=== PATIENT | male | born 1995 | race Caucasian/White ===

== ENCOUNTER 2017-05-25 11:09 | Emergency (ER) | payer BC ==
[2017-05-25 13:40] VITALS: BP 118/66
--- NOTE | 2017-05-25 14:52 | UC ---
Throat Pain/Nasal Derick HPI - HPI Summary HPI Summary: FIVE DAYS OF WORSENING SINUS/FACIAL PRESSURE, COUGH, CONGESTION. NO FEVER. - History of Current Complaint Chief Complaint: UCRespiratory Stated Complaint: SINUS COMPLAINT Time Seen by Provider: 05/25/17 14:18 Hx Obtained From: Patient Onset/Duration: Gradual Onset, Lasting Days, Still Present Severity: Moderate Associated Signs & Symptoms: Positive: Sinus Discomfort, Nasal Discharge. Negative: Dysphagia, Fever - Epiglottits Risk Factors Epiglottis Risk Factors: Negative - Allergies/Home Medications Allergies/Adverse Reactions: Allergies Allergy/AdvReac Type Severity Reaction Status Date / Time No Known Allergies Allergy Verified 05/25/17 13:40 PMH/Surg Hx/FS Hx/Imm Hx Previously Healthy: Yes Other History Of: Negative For: HIV, Hepatitis B, Hepatitis C - Surgical History Surgical History: Yes Surgery Procedure, Year, and Place: RIGHT HAND SURGERY,RIGHT HIP SURGERY - Family History Known Family History: Positive: None - Social History Occupation: Employed Full-time Lives: With Family Alcohol Use: Weekly Substance Use Type: None Smoking Status (MU): Never Smoked Tobacco - Immunization History Vaccination Up to Date: Yes Review of Systems Constitutional: Negative Skin: Negative Eyes: Negative ENT: Ear Ache, Nasal Discharge, Sinus Congestion, Sinus Pain/Tenderness Respiratory: Cough Cardiovascular: Negative Gastrointestinal: Negative Genitourinary: Negative Motor: Negative Neurovascular: Negative Musculoskeletal: Negative Neurological: Negative Psychological: Negative Is Patient Immunocompromised?: No All Other Systems Reviewed And Are Negative: Yes Physical Exam Triage Information Reviewed: Yes Appearance: No Pain Distress, Well-Nourished, Ill-Appearing - MILDLY Vital Signs: Initial Vital Signs Temp 97.8 F 05/25/17 13:37 Pulse 50 05/25/17 13:37 Resp 14 05/25/17 13:37 BP 118/66 05/25/17 13:37 Pulse Ox 100 05/25/17 13:37 Vital Signs Reviewed: Yes Eye Exam: Normal ENT: Positive: Hearing grossly normal, Nasal congestion, TM bulging, TM dull Dental Exam: Normal Neck exam: Normal Neck: Positive: Supple, Nontender, No Lymphadenopathy Respiratory Exam: Other - COUGH Respiratory: Positive: Chest non-tender, Lungs clear, Normal breath sounds, No respiratory distress, No accessory muscle use Cardiovascular Exam: Normal Cardiovascular: Positive: RRR, No Murmur, Pulses Normal Abdominal Exam: Normal Musculoskeletal Exam: Normal Musculoskeletal: Positive: Strength Intact, ROM Intact Neurological Exam: Normal Psychological Exam: Normal Skin Exam: Normal Throat Pain/Nasal Course/Dx - Differential Dx/Diagnosis Differential Diagnosis/HQI/PQRI: Otitis Media, Sinusitis, Tonsillitis, URI Provider Diagnoses: SINUSITIS Discharge - Discharge Plan Condition: Stable Disposition: HOME Prescriptions: Amoxicillin/Clavulanate TAB* [Augmentin TAB 875*] 875 mg PO BID #20 tab Patient Education Materials: Sinusitis (ED) Forms: *Work Release Referrals: Kunal Salvador MD [Primary Care Provider] -
== END 2017-05-25 14:53 | disposition home or self-care (01) ==
LOC: UCCORT 11:09
DX: J32.9 Chronic sinusitis, unspecified (principal)
CPT/HCPCS: 99212; G0463

== ENCOUNTER 2017-05-27 08:41 | Emergency (ER) | payer BC, OTHER ==
[2017-05-27] MEDS ORDERED: Tetanus Immune Globulin Human* 250 UNITS/ML IM ONE (09:21)
--- NOTE | 2017-05-27 09:32 | ED ---
- HPI Summary HPI Summary: Pt here w/ possible body fluid exposure - works as a territory sales manager medical and as he was taking out biohazardous trash from the OR (instruments were from multiple cases and had been used > 12 hours ago), he scraped his gloved Lt ring finger against an instrument and when he took off his glove, noticed it was ripped and he had a superficial abrasion. Washed hands with hibaclens immediately and used hand receivable clerk 2 x after that. Area is not painful not actively bleeding - had scant bleeding at onset. Denies puncture sensation. Last tetanus was 6 years ago and he has received Hep B series prior to attending college (6 years ago). He is here to follow protocol of exposure as directed. NOTE: on anbx (augmentin) x 2 days for sinus infection - History of Current Complaint Chief Complaint: EDExposureBodyFluid Stated Complaint: EXPOSURE Time Seen by Provider: 05/27/17 09:04 PMH/Surg Hx/FS Hx/Imm Hx Previously Healthy: Yes Endocrine/Hematology History: Denies: Hx Anticoagulant Therapy, Hx Blood Disorders, Hx Diabetes, Hx Thyroid Disease, Autoimmune Disease Cardiovascular History: Denies: Hx Congestive Heart Failure, Hx Deep Vein Thrombosis, Hx Hypercholesterolemia, Hx Hypertension, Hx Myocardial Infarction, Hx Pacemaker/ ICD, Hx Peripheral Vascular Disease Respiratory History: Denies: Hx Asthma, Hx Chronic Obstructive Pulmonary Disease (COPD), Hx Lung Cancer, Hx Pneumonia, Hx Pulmonary Embolism GI History: Denies: Hx Gall Bladder Disease, Hx Gastrointestinal Bleed, Hx Ulcer, Hx Urosepsis History: Denies: Hx Kidney Stones, Hx Renal Disease Musculoskeletal History: Denies: Hx Arthritis, Hx Osteoporosis Sensory History: Denies: Hx Cataracts, Hx Contacts or Glasses, Hx Glaucoma, Hx Hearing Aid Opthamlomology History: Denies: Hx Cataracts, Hx Contacts or Glasses, Hx Glaucoma Neurological History: Denies: Hx Dementia, Hx Headaches, Hx Migraine, Hx Seizures, Hx Transient Ischemic Attacks (TIA) Psychiatric History: Denies: Hx Anxiety, Hx Depression, Hx Panic Disorder - Surgical History Surgery Procedure, Year, and Place: RIGHT HAND SURGERY,RIGHT HIP SURGERY Infectious Disease History: No Infectious Disease History: Denies: Hx Hepatitis, Hx Human Immunodeficiency Virus (HIV), Traveled Outside the [place] in Last 30 Days - Family History Known Family History: Positive: Hypertension - father - Social History Occupation: Employed Full-time - medical housekeeping Lives: With Family Alcohol Use: Weekly Alcohol Amount: mostly weekends Hx Substance Use: No Substance Use Type: Reports: None Hx Tobacco Use: No Smoking Status (MU): Never Smoked Tobacco Review of Systems Constitutional: Negative Positive: no symptoms reported Musculoskeletal: Negative Skin: Other - see HPI Neurological: Negative Psychological: Normal All Other Systems Reviewed And Are Negative: Yes Physical Exam Triage Information Reviewed: Yes Vital Signs On Initial Exam: Initial Vitals Temp Pulse Resp BP Pulse Ox 98 F 57 17 127/65 95 05/27/17 08:43 05/27/17 08:43 05/27/17 08:43 05/27/17 08:43 05/27/17 08:43 Vital Signs Reviewed: Yes Appearance: Positive: Well-Appearing, No Pain Distress, Well-Nourished Skin: Positive: Warm, Dry - scan dried blood over superficial abrasion (through top layer of epidermis) - cleaned and could not stimulate more bleeding - clean w/o erythema, edema or ecchymosis Head/Face: Positive: Normal Head/Face Inspection Eyes: Positive: EOMI ENT: Positive: Hearing grossly normal Respiratory/Lung Sounds: Positive: Breath Sounds Present Cardiovascular: Positive: Pulses are Symmetrical in both Upper and Lower Extremities Musculoskeletal: Positive: Normal, Strength/ROM Intact Neurological: Positive: Normal, Sensory/Motor Intact, Alert, Oriented to Person Place, Time, CN Intact II-III Psychiatric: Positive: Normal - [place] Coma Scale Coma Scale Total: 15 Procedures - Procedure Summary Procedure Summary: Cleaned wound with alcohol wipe, applied triple anbx ointment and bandaid - pt tolerated well Diagnostics - Vital Signs Vital Signs Temp Pulse Resp BP Pulse Ox 05/27/17 09:00 69 95 05/27/17 08:52 97.9 F 73 16 132/106 95 05/27/17 08:43 98 F 57 17 127/65 95 - Laboratory Lab Statement: Any lab studies that have been ordered have been reviewed, and results considered in the medical decision making process. Needlestick Course/Dx - Course Course Of Treatment: Pt presents w/ superficial abrasion to Lt ring finger after cleaning 12 hour old, dry biohazardous material w/ gloves in place. Based on HPI, pt is very low risk for acquiring HIV, Hepatitis. Discussed risks/ benefits of PEP in this siutation - pt declined. He agrees to baseline testing and repeat testing - will f/u w/ Dr. Good as directed. Also discussed wound care - pt agrees w/ plan. Paperwork complete. - Diagnoses Provider Diagnoses: Exposure to potentially hazardous body fluids, Abrasion of left ring finger Discharge - Discharge Plan Condition: Stable Disposition: HOME Patient Education Materials: Abrasion (ED), Body Substance Exposure (ED) Referrals: Latisha HUTSON,Marcos Marquez [Medical Doctor] - Additional Instructions: Wash wound daily with soap and water - rinse well and pat dry then apply triple antibiotic ointment + bandaid. Keep covered during the day - may keep open to air at night to allow for scabbing as needed. Follow-up with Dr. Good - call today to schedule appointments. *If you develop redness, swelling, streaking, purulent drainage, fever, chills, seek medical attention
[2017-05-27 10:11] LABS: Rapid HIV INT CONT QC Line Present; Rapid HIV Kit Lot# HO80009
[2017-05-27 10:12] LABS: Manual Entry Verification GRE0060
[2017-05-27] MEDS ORDERED: Tetanus-Diptheria Toxoids* 0.5 ML SYRINGE IM ONE (10:19)
[2017-05-27 10:50] VITALS: BP 122/76
== END 2017-05-27 10:49 | disposition home or self-care (01) ==
LOC: ED 08:41
DX: Z77.21 Contact with and (suspected) exposure to potentially hazardous body fluids (principal); S60.415A Abrasion of left ring finger, initial encounter; W46.0XXA Contact with hypodermic needle, initial encounter; Y93.89 Activity, other specified; Y92.239 Unspecified place in hospital as the place of occurrence of the external cause
CPT/HCPCS: 36415; 86703; 86706; 86803; 87340; 90471; 99283; J1670